=== PATIENT | female | born 1995 | race Hispanic/Latino ===

== ENCOUNTER 2017-09-25 23:58 | Inpatient (IN) | payer OTHER, SELFPAY ==
[2017-09-26 00:22] LABS: Bilirubin Negative (Negative); Blood, Urine Negative (Negative); Clarity CLEAR (Clear); Glucose, Urine (Dipstick) Negative (Negative); Leukocyte Negative (Negative); Nitrite Negative (Negative); Pregnancy Test - Urine (BHCG) Negative (Negative); Pregu Control Background? CLEAR/WHITE (CLR/WHITE); Pregu Control Bar Appear? YES (CONTROL BAR); Protein, Urine (Dipstick) Negative (Neg-Trace); Urobilinogen 0.2 mg/dL (0.2-1.0); pH, Urine 5.5 (5.0-9.0)
[2017-09-26 00:23] LABS: Specific Gravity, Urine 1.002 (1.002-1.036)
[2017-09-26 00:24] LABS: Specific Gravity 1.002 (1.002-1.036)
[2017-09-26 00:35] LABS: Amphetamine Not Detected (NotDetected); Barbiturates Screen Not Detected (NotDetected); Benzodiazepine Screen Not Detected (NotDetected); Cocaine Metabolite Screen Not Detected (NotDetected); Medtox Reader # READER 4; Methadone Not Detected (NotDetected); Methamphetamine Not Detected (NotDetected); Opiate Screen Not Detected (NotDetected); Oxycodone Screen Not Detected (NotDetected); Phencyclidine (PCP) Not Detected (NotDetected); THC/Cannabinoid Screen Not Detected (NotDetected); Tricyclic Screen Not Detected (NotDetected)
[2017-09-26 00:36] LABS: Medtox Control Line Valid? VALID (VALID)
[2017-09-26 01:00] LABS: ALT (SGPT) 28 U/L (8-55); AST (SGOT) 24 U/L (5-34); Albumin 4.1 g/dL (3.5-5.0); Alkaline Phosphatase 77 U/L (40-150); Anion Gap 14 mmol/L (10-20); BUN (Urea Nitrogen) 14 mg/dL (7.0-18.7); Bilirubin, Total 0.3 mg/dL (0.2-1.2); Calc. Creatinine Clearance 0 mL/min (70-130); Calcium 8.7 mg/dL (7.8-10.44); Carbon Dioxide 21 mmol/L (22-29); Chloride 112 mmol/L (98-107); Estimated GFR-MDRD Greater than 90; Globulin 3.1 g/dL (2.4-3.5); Glucose 99 mg/dL (70-105); Protein, Total 7.2 g/dL (6.0-8.3); Sodium 144 mmol/L (136-145)
[2017-09-26 01:01] LABS: Acetaminophen Less than 6.0 mcg/mL (10.0-30.0); Alcohol 128 mg/dL (Less than 10); CK (CPK) 84 U/L (29-168); Salicylate Less than 8.0 mg/dL (15.0-30.0)
[2017-09-26 01:13] LABS: BHCG - Serum Negative (NEGATIVE); Pregs Control Background? CLEAR/WHITE (CLR/WHITE); Pregs Control Bar Appear? YES (CONTROL BAR)
[2017-09-26] MEDS ORDERED: Lorazepam 2 MG/ML VIAL ONE (02:44)
[2017-09-26] MEDS ORDERED: Haloperidol Lactate 5 MG/ML VIAL ONE (03:31)
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
[2017-09-26] MEDS ORDERED: Ondansetron ODT 4 MG TAB SL PRN (06:43)
[2017-09-26] MEDS ORDERED: Sodium Chloride 0.9% 1,000 ML IV SCH ×2 (06:43→08:07)
[2017-09-26] MEDS ORDERED: Acetaminophen 325 MG TAB PO PRN (06:43)
[2017-09-26] MEDS ORDERED: Ondansetron HCl/PF 4 MG/2 ML Vial IVP PRN (06:43)
[2017-09-26 07:07] VITALS: BMI 28.3
[2017-09-26] MEDS ORDERED: Lorazepam 2 MG/ML VIAL SLOW IVP PRN (08:07)
[2017-09-26] MEDS ORDERED: Lactated Ringer's 1,000 ML IV SCH (09:30)
--- NOTE | 2017-09-26 11:23 | RAD ---
PORTABLE AP CHEST XRAY: DATE: 09/26/17. HISTORY Positive PPD. COMPARISON: 01/09/16. FINDINGS: Cardiac silhouette and pulmonary vasculature are within normal limits. The lungs are clear. There i s left convex curvature of the thoracolumbar spine, but this is probably related to positioning. No other interval change from the prior exam. IMPRESSION: 1. No acute cardiopulmonary process. 2. No radiographic findings to suggest active tuberculosis. POS: [facility]
[2017-09-26 11:44] VITALS: BP 106/72; TEMP 98.7
== END 2017-09-26 14:54 | disposition home or self-care (01) | DRG 917 ==
LOC: ERS 23:58 → OBSVTOIN 09-26 02:55 → IMCU/EMU 09-26 02:55 → T4-B 09-26 11:41
PROVIDERS: ADMIT Student in an Organized Health Care Education/Training Program; ATTEND Student in an Organized Health Care Education/Training Program
DX: T42.4X2A Poisoning by benzodiazepines, intentional self-harm, initial encounter (principal); G92 Toxic encephalopathy; T48.202A Poisoning by unspecified drugs acting on muscles, intentional self-harm, initial encounter; F10.129 Alcohol abuse with intoxication, unspecified; Y90.6 Blood alcohol level of 120-199 mg/100 ml; Z91.5 Personal history of self-harm; Z78.1 Physical restraint status
CPT/HCPCS: 36415; 71045; 80053; 80306; 80307; 81003; 81025; 82550; 84443; 84703; 93005; 96361; 96374; 96375; J1630; J2060